=== PATIENT | female | born 2005 | race Caucasian/White ===

== ENCOUNTER 2024-07-30 14:38 | Emergency (ER) | payer MEDICAID ==
[~2024-07-30] VITALS: Ht 40.6 cm; Wt 2.1 kg
[2024-07-30 14:41] VITALS: O2SAT 100
[2024-07-30 15:33] LABS: BASOPHILS % 0.1 % (0.0-2.0); EOSINOPHILS % 0.6 % (0.0-5.0); HEMATOCRIT. 36.3 % (36.0-48.0); HEMOGLOBIN. 11.9 g/dL (12.0-16.0); LYMPHOCYTES % 14.7 % (20.0-50.0); MEAN CORPUSCULAR HGB CONC 32.9 g/dL (31.0-37.0); MEAN PLATELET VOLUME 8.9 fl (7.4-10.4); MONOCYTES % 5.2 % (2.0-8.0); NEUTROPHILS % 79.4 % (40.0-76.0); PLATELET 257 x1000/uL (130-400); RED BLOOD CELL COUNT 4.26 mill/uL (4.2-5.4); RED CELL DISTRIBUTION WIDTH 15.5 % (11.6-14.6)
[2024-07-30 15:37] LABS: CHLORIDE 105 mEq/L (98-107); POTASSIUM 3.5 mEq/L (3.5-5.1); SODIUM 137 mEq/L (136-145)
[2024-07-30 15:38] LABS: CALCIUM 9.1 mg/dL (8.7-10.4); CARBON DIOXIDE 24 mEq/L (21-32)
[2024-07-30 15:43] LABS: CREATININE 0.6 mg/dL (0.6-1.0); GLUCOSE 77 mg/dL (70-105)
[2024-07-30 15:57] LABS: B-HCG QUANTITATIVE 7872 mIU/mL (<3); UREA NITROGEN BLOOD < 5 mg/dL (9-23)
[2024-07-30 16:17] LABS: CLARITY URINE CLEAR (CLEAR); COLOR URINE YELLOW (YELLOW); GLUCOSE URINE NEGATIVE (NEGATIVE); KETONES URINE 2+ (NEGATIVE); LEUKOCYTE ESTERASE URINE NEGATIVE (NEGATIVE); NITRITE URINE NEGATIVE (NEGATIVE); OCCULT BLOOD URINE NEGATIVE (NEGATIVE); PROTEIN URINE NEGATIVE (NEGATIVE); UROBILINOGEN URINE 0.2 E.U./dL (0.2-1.0)
[2024-07-30] MEDS: SODIUM CHLORIDE 0.9% 1,000 ML IV ONE (16:33)
[2024-07-30] MEDS: OXYTOCIN 30 UNITS/500ML NS 500 ML IV ONE (17:15)
[2024-07-30] MEDS: TRANEXAMIC ACID 1000MG PREMIX 100 ML IV NR (18:30)
[2024-07-30] MEDS ORDERED: TRANEXAMIC ACID 1,000MG/10ML IV ONE (18:30)
[2024-07-30 19:20] LABS: HEMATOCRIT 36.8 % (36.0-48.0); HEMOGLOBIN 12.1 g/dL (12.0-16.0); MEAN CORPUSCULAR HEMOGLOBIN 28.4 pg (28.0-32.0); MEAN CORPUSCULAR HGB CONC 32.9 g/dL (31.0-37.0); MEAN CORPUSCULAR VOLUME 86.2 fL (81.0-99.0); PLATELET 238 x1000/uL (130-400); RED BLOOD CELL COUNT 4.27 mill/uL (4.2-5.4); RED CELL DISTRIBUTION WIDTH 14.9 % (11.6-14.6); WHITE BLOOD COUNT 19.3 x1000/uL (4.5-11.0)
[2024-07-30] MEDS: SODIUM CHLORIDE 0.9% 100 ML IV ONE (19:58)
[2024-07-30] MEDS: MISOPROSTOL 200MCG TABLET PO SCH (19:58)
[2024-07-30] MEDS: METHYLERGONOVINE MALEATE 0.2 MG/ML IM ONE (19:58)
[2024-07-30 20:37] VITALS: BP 113/71; PULSE 79; RESP 16; TEMP 36.61404; O2SAT 100
== END 2024-07-30 21:00 | disposition short-term general hospital (02) ==
LOC: ER 15:58
DX: O60.14X0 Preterm labor third trimester with preterm delivery third trimester, not applicable or unspecified (principal); O72.1 Other immediate postpartum hemorrhage; R10.2 Pelvic and perineal pain; Z3A.30 30 weeks gestation of pregnancy
CPT/HCPCS: 80048; 81003; 84702; 85027; 85025; 86850; 86900; 86901; 36415; 76818; 76805; 76817; 96367; 96365; 96372; 99291; J7050; J7030; Z7610; J2590